=== PATIENT | male | born 1985 | race Caucasian/White ===

== ENCOUNTER 2018-06-29 09:57 | Emergency (ER) | payer MEDICAID ==
[~2018-06-29] VITALS: Ht 170.2 cm; Wt 83.0 kg
[2018-06-29 09:59] VITALS: BP 141/99; Ht 170.2 cm; Wt 83.0 kg
== END 2018-06-29 12:47 | disposition left against medical advice (07) ==
LOC: ED 09:57
DX: Z53.21 Procedure and treatment not carried out due to patient leaving prior to being seen by health care provider (principal)

== ENCOUNTER 2018-07-11 04:04 | Emergency (ER) | payer MEDICAID ==
[~2018-07-11] VITALS: Ht 170.2 cm; Wt 78.5 kg
[2018-07-11 04:09] VITALS: Ht 170.2 cm; Wt 78.5 kg
[2018-07-11 06:25] VITALS: BP 126/75
== END 2018-07-11 06:25 | disposition home or self-care (01) ==
LOC: ED 04:04
DX: R07.89 Other chest pain (principal); L03.114 Cellulitis of left upper limb; L03.113 Cellulitis of right upper limb; F17.200 Nicotine dependence, unspecified, uncomplicated; F12.90 Cannabis use, unspecified, uncomplicated; F15.90 Other stimulant use, unspecified, uncomplicated
CPT/HCPCS: J0696; J1885; J2001

== ENCOUNTER 2020-08-15 18:18 | Emergency (ER) | payer MEDICAID ==
[~2020-08-15] VITALS: Ht 170.2 cm; Wt 77.1 kg
[2020-08-15 18:23] VITALS: BP 125/80; Ht 170.2 cm; Wt 77.1 kg
== END 2020-08-16 00:28 | disposition left against medical advice (07) ==
LOC: ED 18:18
DX: Z53.21 Procedure and treatment not carried out due to patient leaving prior to being seen by health care provider (principal)

== ENCOUNTER 2020-08-19 14:12 | Emergency (ER) | payer MEDICAID ==
[~2020-08-19] VITALS: Ht 170.2 cm; Wt 77.1 kg
[2020-08-19 14:30] VITALS: Ht 170.2 cm; Wt 77.1 kg
[2020-08-19 17:09] VITALS: BP 116/66
== END 2020-08-19 17:09 | disposition home or self-care (01) ==
LOC: ED 14:12
DX: S52.122A Displaced fracture of head of left radius, initial encounter for closed fracture (principal); S51.011A Laceration without foreign body of right elbow, initial encounter; M54.5 Low back pain; F15.10 Other stimulant abuse, uncomplicated; W13.0XXA Fall from, out of or through balcony, initial encounter; Y93.89 Activity, other specified; Y92.89 Other specified places as the place of occurrence of the external cause; Y99.8 Other external cause status
CPT/HCPCS: J1885

== ENCOUNTER 2020-08-20 01:57 | Emergency (ER) | payer MEDICAID | END 2020-08-20 05:22 | disposition left against medical advice (07) | LOC: ED 01:57 | DX: Z53.21 Procedure and treatment not carried out due to patient leaving prior to being seen by health care provider (principal) ==